=== PATIENT | female | born 1990 | race Hispanic/Latino ===

== ENCOUNTER 2018-06-23 22:32 | Emergency (ER) | payer SELFPAY ==
[2018-06-23 23:22] LABS: Urine Blood TRACE (NEG); Urine Glucose NEGATIVE (NEG); Urine Protein NEGATIVE (NEG)
[2018-06-24] MEDS ORDERED: METOCLOPRAMIDE 10 MG/2mL INJ ONE (00:52)
[2018-06-24] MEDS ORDERED: DIPHENHYDRAMINE 50 MG/ML VIAL ONE (00:52)
[2018-06-24] MEDS ORDERED: KETOROLAC 30 MG/ML INJ ONE (00:53)
[2018-06-24] MEDS ORDERED: NA CHLORIDE 0.9% 1,000 ML ONE (00:53)
--- NOTE | 2018-06-24 01:29 | EDPHYS ---
Physician Documentation [facility] Name: Brenda Baldwin Age: 27 yrs Sex: Female : 1990 Arrival Date: 06/23/2018 Time: 22:34 Bed 25 Private MD: ED Physician Tru Davis HPI: 06/24 01:25 This 27 yrs old Female presents to ER via Ambulatory with complaints of pm1 Headache. 01:25 The patient complains of pain to the top of head, forehead, left side of the back of pm1 head, left occipital area, right side of the back of head and right occipital area. The patient describes the headache as aching, constant. Onset: The symptoms/episode began/occurred last night. Associated signs and symptoms: Pertinent positives: Photophobia Pertinent negatives: dizziness, fever, nausea, neck stiffness, paresthesias, rash, vomiting, weakness. Severity of symptoms: in the emergency department the pain is actually worse. Headache History: The patient has had previous headaches and this one is similar to previous episodes. The symptoms are alleviated by nothing. usually resolved with OTC NSAIDS but not this time the symptoms are aggravated by nothing. The patient has experienced similar episodes in the past, multiple times. The patient has not recently seen a physician. 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 - Social history:: Smoking status: Patient/guardian denies using tobacco. - Ebola Screening: : No symptoms or risks identified at this time. ROS: 06/24 01:25 Constitutional: Negative for fever, chills, and weight loss, Eyes: Negative for injury, pm1 pain, redness, and discharge, ENT: Negative for injury, pain, and discharge, Neck: Negative for injury, pain, and swelling, Cardiovascular: Negative for chest pain, palpitations, and edema, Respiratory: Negative for shortness of breath, cough, wheezing, and pleuritic chest pain, Abdomen/GI: Negative for abdominal pain, nausea, vomiting, diarrhea, and constipation, Back: Negative for injury and pain, : Negative for injury, bleeding, discharge, and swelling, MS/Extremity: Negative for injury and deformity, Skin: Negative for injury, rash, and discoloration. Neuro: Positive for headache, Negative for dizziness, numbness, syncope, near syncope, weakness. Exam: 01:25 Constitutional: This is a well developed, well nourished patient who is awake, alert, pm1 and in no acute distress. Head/Face: Normocephalic, atraumatic. Eyes: Pupils equal round and reactive to light, extra-ocular motions intact. Lids and lashes normal. Conjunctiva and sclera are non-icteric and not injected. Cornea within normal limits. Periorbital areas with no swelling, redness, or edema. ENT: Nares patent. No nasal discharge, no septal abnormalities noted. Tympanic membranes are normal and external auditory canals are clear. Oropharynx with no redness, swelling, or masses, exudates, or evidence of obstruction, uvula midline. Mucous membranes moist. Neck: Trachea midline, no thyromegaly or masses palpated, and no cervical lymphadenopathy. Supple, full range of motion without nuchal rigidity, or vertebral point tenderness. No Meningismus. Chest/axilla: Normal chest wall appearance and motion. Nontender with no deformity. No lesions are appreciated. Cardiovascular: Regular rate and rhythm with a normal S1 and S2. No gallops, murmurs, or rubs. Normal PMI, no JVD. No pulse deficits. Respiratory: Lungs have equal breath sounds bilaterally, clear to auscultation and percussion. No rales, rhonchi or wheezes noted. No increased work of breathing, no retractions or nasal flaring. Abdomen/GI: Soft, non-tender, with normal bowel sounds. No distension or tympany. No guarding or rebound. No evidence of tenderness throughout. Back: No spinal tenderness. No costovertebral tenderness. Full range of motion. Skin: Warm, dry with normal turgor. Normal color with no rashes, no lesions, and no evidence of cellulitis. MS/ Extremity: Pulses equal, no cyanosis. Neurovascular intact. Full, normal range of motion. 01:25 Neuro: Orientation: is normal, Mentation: is normal, Cerebellar function: normal finger to nose testing, Motor: moves all fours, Sensation: is normal, no obvious gross deficits. Vital Signs: 06/23 22:47 BP 132 / 101; Pulse 66; Resp 16; Temp 97.8; Pulse Ox 100% on R/A; Weight 72.57 kg (R); ak1 Height 5 ft. 3 in. (160.02 cm) (R); Pain 09/10; 06/24 00:29 BP 101 / 59; Pulse 74; Pulse Ox 97% on R/A; rv 01:17 BP 93 / 58; Pulse 73; Pulse Ox 98% on R/A; rv 01:50 BP 89 / 54; Pulse 87; Pulse Ox 99% on R/A; rv 06/23 22:47 Body Mass Index 28.34 (72.57 kg, 160.02 cm) ak1 MDM: 06/23 22:52 Patient medically screened. pm1 06/24 01:27 Data reviewed: vital signs. Data interpreted: Pulse oximetry: on room air is 98 %. pm1 Interpretation: normal. Counseling: I had a detailed discussion with the patient and/or guardian regarding: the historical points, exam findings, and any diagnostic results supporting the discharge/admit diagnosis, radiology results, the need for outpatient follow up, to return to the emergency department if symptoms worsen or persist or if there are any questions or concerns that arise at home. 06/23 23:12 Order name: Urine Dipstick--Ancillary (enter results); Complete Time: 23:27 mt 06/23 23:12 Order name: Urine --Ancillary (enter results); Complete Time: 23:27 mt 06/23 22:57 Order name: CT Head Brain wo Cont pm1 06/23 22:57 Order name: IV Saline Lock; Complete Time: 23:13 pm1 06/23 22:57 Order name: Urine Dipstick-Ancillary (obtain specimen); Complete Time: 23:03 pm1 06/23 22:57 Order name: Urine Test (obtain specimen); Complete Time: 23:03 pm1 Administered Medications: 00:50 Drug: Reglan 10 mg Route: IVP; Site: right antecubital; rv 00:50 Drug: Benadryl 25 mg Route: IVP; Site: right antecubital; rv 00:50 Drug: TORadol 30 mg Route: IVP; Site: right antecubital; rv 00:50 Drug: NS 0.9% 1000 ml Route: IV; Rate: 1000 ml; Site: right antecubital; rv Disposition: 07:19 Co-signature as Attending Physician, Tru Davis MD. Disposition: 06/24/18 01:28 Discharged to Home. Impression: Headache. - Condition is Stable. - Discharge Instructions: Migraine Headache. - Medication Reconciliation Form, Thank You Letter, Antibiotic Education form. - Follow up: Emergency Department; When: As needed; Reason: Worsening of condition. Follow up: Private Physician; When: 2 - 3 days; Reason: Recheck today's complaints, Continuance of care, Re-evaluation by your physician. - Problem is new. - Symptoms have improved. Signatures: Dispatcher [employer] EDMS Natividad Perez RN RN ak1 Marin Aguiar, CONSTRUCTION MILLWRIGHT CONSTRUCTION MILLWRIGHT pm1 Tru Davis MD MD Dashawn Lazar RN RN rv Corrections: (The following items were deleted from the chart) 01:52 01:28 06/24/2018 01:28 Discharged to Home. Impression: Headache. Condition is Stable. rv Forms are Medication Reconciliation Form, Thank You Letter, Antibiotic Education, Prescription Opioid Use. Follow up: Emergency Department; When: As needed; Reason: Worsening of condition. Follow up: Private Physician; When: 2 - 3 days; Reason: Recheck today's complaints, Continuance of care, Re-evaluation by your physician. Problem is new. Symptoms have improved. pm1
--- NOTE | 2018-06-24 01:29 | ER ---
Nurse's Notes [facility] Name: Brenda Baldwin Age: 27 yrs Sex: Female : 1990 Arrival Date: 06/23/2018 Time: 22:34 Bed 25 Private MD: Diagnosis: Headache Presentation: 06/23 22:45 Presenting complaint: Patient states: headache since last night. pt c/o nausea. ak1 Transition of care: patient was not received from another setting of care. Onset of symptoms was June 22, 2018. Risk Assessment: Do you want to hurt yourself or someone else? Patient reports no desire to harm self or others. Initial Sepsis Screen: Does the patient meet any 2 criteria? No. Patient's initial sepsis screen is negative. Does the patient have a suspected source of infection? No. Patient's initial sepsis screen is negative. Care prior to arrival: None. 22:45 Method Of Arrival: Ambulatory ak1 22:45 Acuity: ELDA 3 ak1 Triage Assessment: 23:17 Headache History: Denies prior headaches. General: Appears in no apparent distress. rv Behavior is calm, cooperative. Pain: Also complains of. Pain: Pain currently is 8 out of 10 on a pain scale. Pain began 1 day ago. REHAB LIAISON: 22:47 LMP 06/02/2018 ak1 Historical: - Allergies: 22:47 No Known Allergies; ak1 - Home Meds: 22:47 amitriptyline 10 mg Oral tab 1 tab nightly [Active]; metformin 1,000 mg Oral tr24 1 tab ak1 once daily [Active]; Sprintec (28) 0.25-35 mg-mcg oral tab 1 tab once daily [Active]; - PMHx: 22:47 PCOS; Endometrosis; ak1 - PSHx: 22:47 None; ak1 - Immunization history:: Adult Immunizations up to date. - Social history:: Smoking status: Patient/guardian denies using tobacco. - Ebola Screening: : No symptoms or risks identified at this time. Screenin:17 Abuse screen: Denies threats or abuse. Denies injuries from another. Nutritional rv screening: No deficits noted. Tuberculosis screening: No symptoms or risk factors identified. Fall Risk None identified. Assessment: 23:16 General: Appears in no apparent distress. comfortable, Behavior is calm, cooperative. rv Pain: Complains of pain in HEAD. Neuro: Level of Consciousness is awake, alert, obeys commands, Oriented to person, place, time, situation. Cardiovascular: Heart tones S1 S2 present. Respiratory: Airway is patent. GI: No signs and/or symptoms were reported involving the gastrointestinal system. : No signs and/or symptoms were reported regarding the genitourinary system. EENT: No signs and/or symptoms were reported regarding the EENT system. Derm: Skin is intact. 06/24 00:31 Reassessment: Patient appears in no apparent distress at this time. Patient and/or rv family updated on plan of care and expected duration. Pain level reassessed. Patient is alert, oriented x 3, equal unlabored respirations, skin warm/dry/pink. CT SCAN DONE. AWAITING RESULT. Vital Signs: 06/23 22:47 BP 132 / 101; Pulse 66; Resp 16; Temp 97.8; Pulse Ox 100% on R/A; Weight 72.57 kg (R); ak1 Height 5 ft. 3 in. (160.02 cm) (R); Pain 10/10; 06/24 00:29 BP 101 / 59; Pulse 74; Pulse Ox 97% on R/A; rv 01:17 BP 93 / 58; Pulse 73; Pulse Ox 98% on R/A; rv 01:50 BP 89 / 54; Pulse 87; Pulse Ox 99% on R/A; rv 06/23 22:47 Body Mass Index 28.34 (72.57 kg, 160.02 cm) ak1 ED Course: 06/23 22:34 Patient arrived in ED. al2 22:45 Triage completed. ak1 22:47 Arm band placed on. ak1 22:52 Marin Aguiar NP is PHCP. pm1 22:52 Tru Davis MD is Attending Physician. pm1 23:04 Pillow given. jp3 23:04 Urine collected: clean catch specimen, clear, kenyon colored, test was jp3 performed. 23:10 Inserted saline lock: 22 gauge in right forearm, using aseptic technique. Blood jp3 collected. 23:18 Patient has correct armband on for positive identification. Bed in low position. Call rv light in reach. Side rails up X 1. Adult w/ patient. Pulse ox on. NIBP on. 23:[address] via wheelchair. kw1 23:54 CT Head Brain wo Cont In Process Unspecified. EDMS 23:54 CT completed. Patient tolerated procedure well. Patient moved back from CT. kw1 06/24 01:51 No provider procedures requiring assistance completed. IV discontinued, bleeding rv controlled, No redness/swelling at site. Pressure dressing applied. Administered Medications: 00:50 Drug: Reglan 10 mg Route: IVP; Site: right antecubital; rv 00:50 Drug: Benadryl 25 mg Route: IVP; Site: right antecubital; rv 00:50 Drug: TORadol 30 mg Route: IVP; Site: right antecubital; rv 00:50 Drug: NS 0.9% 1000 ml Route: IV; Rate: 1000 ml; Site: right antecubital; rv Outcome: 01:28 Discharge ordered by . pm1 01:51 Discharged to home ambulatory. rv 01:51 Condition: good 01:51 Discharge instructions given to patient, Instructed on discharge instructions. 01:52 Patient left the ED. rv Signatures: Dispatcher [employer] EDID Kenyon Perez, RN RN ak1 Marin Aguiar, DRAWER MAKER DRAWER MAKER pm1 Daylin Hays kw1 Imelda Calle2 Dashawn Lazar RN RN rv Leonard Wharton jp3
--- NOTE | 2018-06-24 09:49 | RAD REPORT ---
EXAM DESCRIPTION: CT - Head Brain Wo Cont - 06/24/2018 7:09 am CLINICAL HISTORY: Headache COMPARISON: None. TECHNIQUE: Computed axial tomography of the head was obtained. IV contrast was not requested.A preli minary report was generated by [employer] and reviewed prior to this dictation All CT scans are performed using dose optimization technique as appropriate and may include automated exposure control or mA/KV adjustment according to patient size. FINDINGS: An intracranial bleed is not seen . The ventricles are normal in caliber. No extra-axial fluid collection is noted. Fluid within the sinuses/ mastoids is not seen. IMPRESSION: No acute intracranial abnormality is seen. If patient's symptoms persist MRI of the bra in would be recommended.
== END 2018-06-24 01:52 | disposition home or self-care (01) ==
LOC: ER 22:32
DX: R51 Headache (principal)
CPT/HCPCS: 70450; 81003; 81025; 96374; 96375; 99284; J2765; J7030

== ENCOUNTER 2022-07-19 17:53 | Emergency (ER) | payer OTHER ==
--- NOTE | 2022-07-19 20:11 | RAD REPORT ---
EXAM DESCRIPTION: RAD - Knee Right 3 View - 07/19/2022 7:59 pm CLINICAL HISTORY: PAIN COMPARISON: No comparisons FINDINGS: No fracture or dislocation seen.
--- NOTE | 2022-07-19 20:16 | ER ---
Nurse's Notes [facility] Name: Brenda Baldwin Age: 31 yrs Sex: Female : 1990 Arrival Date: 07/19/2022 Time: 17:58 Bed 12 Private MD: Diagnosis: Sprain of unspecified site of right knee, initial encounter Presentation: 07/19 18:21 Chief complaint: Patient states: she fell out of a chair and onto her right knee ap3 earlier today. patient comes in complaining of right knee pain. Coronavirus screen: At this time, the client does not indicate any symptoms associated with coronavirus-19. Ebola Screen: No symptoms or risks identified at this time. Initial Sepsis Screen: Does the patient meet any 2 criteria? No. Patient's initial sepsis screen is negative. Does the patient have a suspected source of infection? No. Patient's initial sepsis screen is negative. Risk Assessment: Do you want to hurt yourself or someone else? Patient reports no desire to harm self or others. Onset of symptoms was July 19, 2022 at 11:00. 18:21 Method Of Arrival: Wheelchair ap3 18:21 Acuity: ELDA 4 ap3 Triage Assessment: 18:23 General: Appears in no apparent distress. Behavior is calm, cooperative. Pain: ap3 Complains of pain in right knee Pain currently is 6 out of 10 on a pain scale. Neuro: Level of Consciousness is awake, alert, obeys commands, Oriented to person, place, time, situation, Appropriate for age. Cardiovascular: Patient's skin is warm and dry. Respiratory: Airway is patent Respiratory effort is even, unlabored, Respiratory pattern is regular, symmetrical. Musculoskeletal: Reports pain in right knee. Injury Description: fall out of chair. 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 - Social history:: Smoking status: Patient denies any tobacco usage or history of. Screenin:24 Abuse screen: Denies threats or abuse. Nutritional screening: No deficits noted. ap3 Tuberculosis screening: No symptoms or risk factors identified. 19:17 Fall Risk None identified. jh5 Vital Signs: 18:21 Pulse 84; Resp 17; Temp 98.5; Pulse Ox 100% ; Weight 83.01 kg; Height 5 ft. 3 in. ap3 (160.02 cm); Pain 6/10; 18:21 Body Mass Index 32.42 (83.01 kg, 160.02 cm) ap3 ED Course: 17:58 Patient arrived in ED. mr 17:58 [facility] jh7 17:58 Morteza Moncada MD is Attending Physician. jh7 18:22 Triage completed. ap3 18:24 Arm band placed on right wrist. ap3 19:16 No provider procedures requiring assistance completed. jh5 19:17 Patient has correct armband on for positive identification. jh5 20:00 XRAY Knee RIGHT 3 view In Process Unspecified. EDMS 20:17 Patient did not have IV access during this emergency room visit. jh5 20:17 Crutch training done. Hal wrap to right knee. Administered Medications: 19:31 Drug: [place] (HYDROcodone-acetaminophen) (7.5 mg-325 mg) 1 tabs Route: PO; 5 Medication: 19:17 VIS not applicable for this client. 5 Outcome: 20:16 Discharge ordered by . 7 20:17 Discharged to home jh5 20:17 Condition: good 20:17 Discharge instructions given to patient, family. 20:25 Patient left the ED. [facility] er Signatures: Dispatcher [employer] EDCT Oanh PerkinsSusana RN RN 3 Ginger Beaver RN RN 5 Mell Rodriguez Giovana Felder FNP FNP [facility]
--- NOTE | 2022-07-19 20:16 | EDPHYS ---
Physician Documentation [facility] Name: rBenda Baldwin Age: 31 yrs Sex: Female : 1990 Arrival Date: 07/19/2022 Time: 17:58 Bed 12 Private MD: ED Physician Morteza Moncada HPI: 07/19 18:30 This 31 yrs old Female presents to ER via Wheelchair with complaints of Knee jh7 Injury. 18:30 Onset: The symptoms/episode began/occurred acutely. Patient states that she was jh7 standing on a chair trying to swat a bug and slipped and fell on her right knee today. Denies head injury or loss of consciousness. States that she felt her knee go backwards.. 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 - Social history:: Smoking status: Patient denies any tobacco usage or history of. ROS: 18:30 Constitutional: Negative for fever, chills, and weight loss, Eyes: Negative for injury, jh7 pain, redness, and discharge, Neck: Negative for injury, pain, and swelling, Cardiovascular: Negative for chest pain, palpitations, and edema, Respiratory: Negative for shortness of breath, cough, wheezing, and pleuritic chest pain, Abdomen/GI: Negative for abdominal pain, nausea, vomiting, diarrhea, and constipation, Back: Negative for injury and pain, Skin: Negative for injury, rash, and discoloration, Neuro: Negative for headache, weakness, numbness, tingling, and seizure. 18:30 MS/extremity: Positive for injury or acute deformity, contusion, pain, swelling, tenderness. 18:30 All other systems are negative. Exam: 18:30 Constitutional: This is a well developed, well nourished patient who is awake, alert, jh7 and in no acute distress. Head/Face: Normocephalic, atraumatic. Cardiovascular: Regular rate and rhythm with a normal S1 and S2. No gallops, murmurs, or rubs. Normal PMI, no JVD. No pulse deficits. Respiratory: Lungs have equal breath sounds bilaterally, clear to auscultation and percussion. No rales, rhonchi or wheezes noted. No increased work of breathing, no retractions or nasal flaring. Abdomen/GI: Soft, non-tender, with normal bowel sounds. No distension or tympany. No guarding or rebound. No evidence of tenderness throughout. Back: No spinal tenderness. No costovertebral tenderness. Full range of motion. Skin: Warm, dry with normal turgor. Normal color with no rashes, no lesions, and no evidence of cellulitis. Neuro: Awake and alert, GCS 15, oriented to person, place, time, and situation. Sensation intact. Normal gait. 18:30 Musculoskeletal/extremity: ROM: limited active range of motion due to pain, in the right knee, Circulation is intact in all extremities. Sensation intact. Diffuse swelling, bruising, and tenderness to palpation of the right knee. Pain with weight bearing, flexion, and extension. . Vital Signs: 18:21 Pulse 84; Resp 17; Temp 98.5; Pulse Ox 100% ; Weight 83.01 kg; Height 5 ft. 3 in. ap3 (160.02 cm); Pain 6/10; 18:21 Body Mass Index 32.42 (83.01 kg, 160.02 cm) ap3 MDM: 18:06 Patient medically screened. [facility] 20:19 Differential diagnosis: contusion, fracture, sprain, strain. Data reviewed: vital [facility] signs, nurses notes, radiologic studies, plain films. Data interpreted: Pulse oximetry: is 100 %. Interpretation: normal. Counseling: I had a detailed discussion with the patient and/or guardian regarding: the historical points, exam findings, and any diagnostic results supporting the discharge/admit diagnosis, to return to the emergency department if symptoms worsen or persist or if there are any questions or concerns that arise at home. ED course: The patient was placed on crutches and Hal wrap was applied. Informed her that the x-ray showed no fracture or dislocation, but if her pain persisted and she should follow-up with Ortho for an MRI. She was instructed to ice and elevate the affected extremity at home and take medication as needed for pain.. 07/19 18:05 Order name: XRAY Knee RIGHT 3 view; Complete Time: 20:15 [facility] 07/19 19:50 Order name: Crutches; Complete Time: 20:17 jh7 07/19 19:50 Order name: Hal Wrap; Complete Time: 20:17 jh7 Administered Medications: 19:31 Drug: [place] (HYDROcodone-acetaminophen) (7.5 mg-325 mg) 1 tabs Route: PO; 5 Disposition Summary: 07/19/22 20:16 Discharge Ordered Location: Home [facility] Problem: new [facility] Symptoms: have improved [facility] Condition: Stable [facility] Diagnosis - Sprain of unspecified site of right knee, initial encounter [facility] Followup: [facility] - With: Private Physician - When: 2 - 3 days - Reason: Recheck today's complaints Discharge Instructions: - Discharge Summary Sheet [facility] - Knee Sprain, Adult [facility] Forms: - Medication Reconciliation Form [facility] - Thank You Letter [facility] Prescriptions: - Naprosyn 500 mg Oral Tablet - take 1 tablet by ORAL route 2 times per day take with food; 30 tablet; Refills: [facility] 0, Product Selection Permitted Signatures: Dispatcher [employer] Susana Ward RN RN ap3 Ginger Beaver RN RN jh5 Giovana Felder, WAREHOUSE MAN WAREHOUSE MAN [facility]
[2022-07-19 21:08] VITALS: TEMP 98.5; O2SAT 100
== END 2022-07-19 20:25 | disposition home or self-care (01) ==
LOC: ER 17:53
DX: S83.91XA Sprain of unspecified site of right knee, initial encounter (principal)
CPT/HCPCS: 99283